=== PATIENT | male | born 1945 | race Caucasian/White ===

== ENCOUNTER 2020-10-11 10:22 | Emergency (ER) | payer MEDICARE ==
[~2020-10-11] VITALS: Ht 180.3 cm; Wt 109.0 kg
[2020-10-11] MEDS ORDERED: LIDOCAINE/EPI 1%-1:100,000 (XYLOCAINE) 20ML INJ ONE (11:00)
--- NOTE | 2020-10-11 11:10 | ED Lower Extremity ---
General Chief Complaint: Lower Extremity Stated Complaint: LEFT KNEE PAIN/SWELLING/DRAINING PUS Nursing Triage Note: AMB TO ED WITH C/O L KNEE PAIN AND DRAINAGE FOR 3 DAYS REPORTS THAT KNEE HAS BEEN SWOLLEN WITH DRAINAGE AFTER LAYING KIRSTIN Nursing Sepsis Screen: Possible Severe Sepsis Risk Source: patient Exam Limitations: no limitations History of Present Illness Date Seen by Provider: Oct 11, 2020 Time Seen by Provider: 10:50 Initial Comments Here with report of redness and drainage over the last 3 days to the anterior left knee. He is able to bend the knee and does not have pain necessarily in the joint but seems to be more topically. States onset after he was doing kirstin. States he was using kneepads while putting the floor down but wound appeared afterwards. Has had drainage from the wound. states that he may have had low-grade fever last night. Redness seems to be about the knee but no pain above or below of significance although there is some erythema lower. Onset: other (3 days ago) Severity: moderate Method of Injury: other Modifying Factors: Worse With Movement; Improves With Rest Allergies and Home Medications Allergies Coded Allergies: No Known Drug Allergies (Unverified , 10/11/20) Home Medications Sulfamethoxazole/Trimethoprim 1 Each Tablet, 1 EACH PO BID Prescribed by: ENDY DEJESUS on 10/11/20 1206 Patient Home Medication List Home Medication List Reviewed: Yes Review of Systems Constitutional: see HPI; No chills; fever Respiratory: no symptoms reported Cardiovascular: no symptoms reported Musculoskeletal: see HPI, joint pain, joint swelling Skin: change in color, lesions Psychiatric/Neurological: Denies Paresthesia, Denies Tingling Past Kzivkmg-[id number]-Bursvc Hx Past Med/Social Hx: Reviewed Nursing Past Med/Soc Hx Patient Social History Alcohol Use: Denies Use Smoking Status: Current Everyday Smoker Recent Infectious Disease Expo: No Past Medical History Surgeries: Yes Tonsillectomy Respiratory: No Cardiac: No Neurological: No Genitourinary: No Gastrointestinal: No Musculoskeletal: No Endocrine: No Family Medical History Reviewed Nursing Family Hx Physical Exam Vital Signs Vital Signs - First Documented 10/11/20 10:30 Temp 36.5 Pulse 128 Resp 18 B/P (MAP) 119/69 (86) Pulse Ox 98 O2 Delivery Room Air Capillary Refill : Less Than 3 Seconds Height, Weight, BMI Height: '" Weight: lbs. oz. kg; 33.00 BMI Method: General Appearance: WD/WN, no apparent distress Cardiovascular: regular rate, rhythm, no murmur Respiratory: lungs clear, normal breath sounds Knees: left knee soft tissue tenderness, left knee swelling, left knee other (Erythema noted around central fluctuant area directly over patella anteriorly. Fluctuant area is approximately 3 x 3 cm and has central wound that is not draining currently. Patient states it has drained and the puffiness is less currently. Does have some surrounding erythema above and below the knee but more located below.) Neurologic/Psychiatric: alert, oriented x 3 Skin: normal color, warm/dry Procedures/Interventions I&D : Blade Size: 11 I & D Procedure: betadine prep Progress I&D of left anterior knee abscess after 5 mL of 1% lidocaine with epi infiltrated surrounding wound. This was after Betadine prep. 1.5 cm incision midline vertical did not find pocket. 1 cm incision lateral to initial wound was done over other area of fluctuance and a pocket was obtained from this incision and purulent thin fluid expressed from wound. This was flushed with 50 cc of saline. Wound covered with antibiotic ointment and dressings. Patient states he feels much better afterwards. Wound culture obtained from second area. Progress/Results/Core Measures Results/Orders My Orders Orders - ENDY DEJESUS MD Wound Culture (10/11/20 10:55) Lidocaine/Epi 2% 1:100,000 (Xylocaine/Ep (10/11/20 11:15) Medications Given in ED Current Medications Medications Dose Ordered Sig/Eren Route Start Time Stop Time Status Last Admin Dose Admin Lidocaine/ Epinephrine 20 ml ONCE ONCE INJ 10/11/20 11:15 10/11/20 11:16 DC 10/11/20 11:43 20 ML Vital Signs/I&O 10/11/20 10:30 Temp 36.5 Pulse 128 Resp 18 B/P (MAP) 119/69 (86) Pulse Ox 98 O2 Delivery Room Air Blood Pressure Mean: 86 Progress Progress Note : Progress Note Seen and evaluated. I&D left knee. 1205: I&D complete and patient better afterwards. Prescription for Bactrim DS sent to pharmacy and patient will scrap picker in route to home. Wound was covered with antibiotic ointment and dressing. Bleeding controlled. Much better afterwards. Discharged home with return precautions. Patient verbalized understanding of instructions and agreement with plan. Departure Impression Primary Impression: Abscess of left knee Disposition: HOME, SELF-CARE Condition: Improved Departure-Patient Inst. Decision time for Depature: 12:07 Referrals: ROSITA TAVAREZ DO (PCP/Family) Primary Care Physician Patient Instructions: Abscess Incision and Drainage (DC) Add. Discharge Instructions: All discharge instructions reviewed with patient and/or family. Voiced understanding. Take medications as directed. You may take Tylenol/acetaminophen 1000 mg every 6 hours as needed for pain. You may take ibuprofen 400 mg every 8 hours as needed for pain. Return in 2 days for wound check. Use antibiotic ointment and dressing over wound and change dressing once or twice daily. It is okay to shower but do not soak in a bathtub or pool or other body of water. You may gently clean wound with fresh water and mild soap. Change Band-Aid as needed. Change first dressing tomorrow morning. Return for worse pain, fever, red streaks up the leg, weakness or other concerns as needed. Scripts Sulfamethoxazole/Trimethoprim (Bactrim Ds Tablet) 1 Each Tablet 1 EACH PO BID, #14 TAB 0 Refills Prov: ENDY DEJESUS MD 10/11/20 ENDY DEJESUS MD Oct 11, 2020 11:10
[2020-10-11] MEDS ORDERED: LIDOCAINE/EPI 2% 1:100,00 (XYLOCAINE) 20 ML VIAL INJ ONE (11:15)
[2020-10-11] MEDS ORDERED: SULF1TAB35 PO (12:06)
[2020-10-11 12:23] VITALS: BP 167/67
== END 2020-10-11 12:29 | disposition home or self-care (01) ==
LOC: EDUNIT# 10:22 → ER 10:29
DX: L02.416 Cutaneous abscess of left lower limb (principal); F17.200 Nicotine dependence, unspecified, uncomplicated
CPT/HCPCS: 10060; 87070; 87077; 87186; 87205

== ENCOUNTER 2020-10-13 10:10 | Emergency (ER) | payer MEDICARE ==
[~2020-10-13] VITALS: Ht 180.3 cm; Wt 108.8 kg
[~2020-10-13 10:10] MED LIST: SULF1TAB35 PO
[2020-10-13 10:50] VITALS: BP 147/74
== END 2020-10-13 11:08 | disposition home or self-care (01) ==
LOC: EDUNIT# 10:10 → ER 10:12
DX: Z48.00 Encounter for change or removal of nonsurgical wound dressing (principal)